=== PATIENT | female | born 1990 | race Two or more races ===

== ENCOUNTER 2018-11-24 18:58 | Emergency (ER) | payer SELFPAY ==
[~2018-11-24] VITALS: Ht 149.9 cm; Wt 64.0 kg
[2018-11-24] MEDS ORDERED: TETRACAINE 0.5% OPHTH DROPS 4ML RIGHTEYE ONE (20:45)
[2018-11-24] MEDS ORDERED: FLUORESCEIN SODIUM 1MG/STRIP RIGHTEYE ONE (20:45)
[2018-11-24 21:25] VITALS: BP 124/68
== END 2018-11-24 21:44 | disposition home or self-care (01) ==
LOC: ER 18:58
DX: S05.00XA Injury of conjunctiva and corneal abrasion without foreign body, unspecified eye, initial encounter (principal); X58.XXXA Exposure to other specified factors, initial encounter; Y93.9 Activity, unspecified; Y92.9 Unspecified place or not applicable
CPT/HCPCS: 99283